=== PATIENT | female | born 1940 | race Caucasian/White ===

== ENCOUNTER 2019-12-15 06:17 | Observation (INO) ==
--- NOTE | 2019-11-28 10:01 | PAT Medication Instructions ---
Medication Instructions Date of Service November 28, 2019 Home Medications Medication Instructions Recorded oxycodone-acetaminophen [Percocet] 1 tab PO Q8H PRN #7 tab 03/27/19 carvedilol 25 mg tablet 25 mg PO BID #180 tab 08/10/19 solifenacin 10 mg tablet 10 mg PO QAM #90 tab 10/30/19 cholecalciferol (vitamin D3) 50 mcg (2,000 unit) capsule 2,000 units PO QPM coenzyme Q10 100 mg capsule 100 mg PO BID gabapentin 300 mg capsule 300 mg PO TID omeprazole 20 mg capsule,delayed release 40 mg PO QAM rosuvastatin 20 mg tablet 20 mg PO QAM venlafaxine 75 mg capsule,extended release 24 hr 75 mg PO QPM linagliptin 5 mg tablet 5 mg PO QAM docusate sodium [Stool Softener] 100 mg PO BID naproxen 500 mg PO BID oxycodone-acetaminophen [Percocet] 1 tab PO Q8H PRN carvedilol 25 mg tablet 25 mg PO BID solifenacin 10 mg tablet 10 mg PO QAM ASK your surgeon for instructions naproxen 500 mg PO BID STOP taking 2 weeks before surgery (or as soon as possible if surgery is within 2 weeks) coenzyme Q10 100 mg capsule 100 mg PO BID DO NOT take the morning of surgery linagliptin 5 mg tablet 5 mg PO QAM docusate sodium [Stool Softener] 100 mg PO BID solifenacin 10 mg tablet 10 mg PO QAM Take morning of surgery With a small sip of water, OTHERWISE NOTHING TO EAT OR DRINK AFTER MIDNIGHT: gabapentin 300 mg capsule 300 mg PO TID omeprazole 20 mg capsule,delayed release 40 mg PO QAM rosuvastatin 20 mg tablet 20 mg PO QAM oxycodone-acetaminophen [Percocet] 1 tab PO Q8H PRN (okay to take up to 4 hours prior to surgery if needed) carvedilol 25 mg tablet 25 mg PO BID Take evening before surgery cholecalciferol (vitamin D3) 50 mcg (2,000 unit) capsule 2,000 units PO QPM gabapentin 300 mg capsule 300 mg PO TID venlafaxine 75 mg capsule,extended release 24 hr 75 mg PO QPM docusate sodium [Stool Softener] 100 mg PO BID oxycodone-acetaminophen [Percocet] 1 tab PO Q8H PRN (if needed) carvedilol 25 mg tablet 25 mg PO BID Other Notes If you have any questions please call us at [phone] or [phone] or [phone] or [phone]
--- NOTE | 2019-11-30 11:07 | Anesthesiology Consultation ---
Date of Service November 30, 2019 Assessment & Plan (1) Encounter for pre-operative examination: - Check BSG AM DOS - Per assessment on 11/29: Travel screen negative. No known COVID-19 positive contacts or current COVID-19 related symptoms. Surgeon arranging preop COVID testing (being done at [facility]). Awaiting results. - Hx Anesthesia/surgery complication: "Heart failure" with 2011 bladder tacking (2011) at [facility]. Subsequent cystoscopy with bladder biopsy 03/27/19 under [place] (LMA#4 at [facility]) without issue. Chart Review Chart Review: Acceptable Risk for Surgery (pending surgeon-ordered cardiology clearance scheduled 12/07 ([facility] and Patient seen in Pre Admission Testing Teaching & Discussion Pre-Anesthesia Teaching/Discussion Notes: Instructed NPO after midnight before surgery,except medications with 15 cc of water. Medication instructions provided according to the PAT guidelines. History Surgery Operation Date: 12/15/19 07:45 Proposed Procedures p C6-C7 Anterior Cervical Discectomy and Fusion, Possible C5 Corpectomy, Spinal Cord Monitoring - Krishna Kaur DO Height/Weight Height: 5 ft 7.5 in Weight: 106.5 kg Allergies Allergy/AdvReac Type Severity Reaction Status Date / Time lisinopril Allergy Unknown Itchy Verified 11/30/19 11:10 Penicillins Allergy Unknown Arm Verified 11/30/19 11:10 swelling with injection escitalopram AdvReac Unknown Unknown Verified 11/24/19 11:50 milk AdvReac Unknown Diarrhea- Verified 11/30/19 11:10 lactose intolerance Sulfa (Sulfonamide AdvReac Unknown Hives Verified 11/24/19 11:50 Antibiotics) Medications Home Medications Medication Instructions Recorded Confirmed Last Taken cholecalciferol (vitamin D3) 50 2,000 units PO QPM cap 11/23/18 11/24/19 03/26/19 17:30 mcg (2,000 unit) capsule coenzyme Q10 100 mg capsule 100 mg PO BID cap 11/23/18 11/24/19 03/26/19 gabapentin 300 mg capsule 300 mg PO TID cap 11/23/18 11/24/19 03/26/19 21:00 omeprazole 20 mg capsule,delayed 40 mg PO QAM cap 11/23/18 11/24/19 03/27/19 03:30 release rosuvastatin 20 mg tablet 20 mg PO QAM #90 tab 11/23/18 11/24/19 03/26/19 09:00 venlafaxine 75 mg capsule,extended 75 mg PO QPM cap 11/23/18 11/24/19 03/26/19 21:00 release 24 hr linagliptin 5 mg tablet 5 mg PO QAM 01/30/19 11/24/19 03/26/19 21:00 docusate sodium [Stool Softener] 100 mg PO BID 03/14/19 11/24/19 03/26/19 21:00 naproxen 500 mg PO BID 03/14/19 11/24/19 03/26/19 17:30 oxycodone-acetaminophen [Percocet] 1 tab PO Q8H PRN #7 tab 03/27/19 11/24/19 Unknown carvedilol 25 mg tablet 25 mg PO BID #180 tab 08/10/19 11/24/19 Unknown solifenacin 10 mg tablet 10 mg PO QAM #90 tab 10/30/19 11/24/19 Unknown Past Medical History Medical History Cardiomyopathy non-ischemic cardiomyopathy with systolic CHF; follows with [facility] [place]ology (Dr. Baker) Depression Diabetes NIDDM Diaphragmatic hernia Esophageal reflux Fibromyalgia Hyperlipidemia Hypertension Migraine headache hx Obesity Osteoarthritis Exercise / Class Metabolic Activity III < 4 Walking/Shop/Light housework Past Family History Family History Brother Diabetes Heart disease Mother Diabetes Heart disease Father Heart disease Other No family history of adverse response to anesthesia Past Surgical History Surgical History H/O knee surgery History of back surgery History of bladder surgery "bladder tacked up (2011)" History of cardiac cath 2011- no stents History of colonoscopy History of cystoscopy TURBT History of esophagogastroduodenoscopy (EGD) Past Anesthesia History No Family Hx of Anesthesia Complications Hx anesthesia/surgery complication: "Heart failure" with 2011 bladder tacking (2011) at [facility]. Subsequent cystoscopy with bladder biopsy 03/27/19 under [place] (LMA#4 at [facility]) without issue. History of PONV No Hx of PONV and No Hx of Motion Sickness STOP BANG Total 5 Social History Smoking Status: Never smoker Do You Dip or Chew Tobacco: No Hx Alcohol Use: No Hx Substance Use: No substance use type: does not use Review of Systems Patient denies chest pain, shortness of breath, fever, chills, cough, wheezing, palpitations. Physical Exam Vital Signs VITALS BP 110/71 P 67 TEMP 98.1 SP02 96%RA RESP 16 PHYSICAL Full neck and c-spine range of motion. Full TMJ range of motion. TMD 3 finger breaths Mallampati Score 2 Dentition: missing molars, + crowns several all over Lungs: clear throughout to auscultation Cardiac: regular rate and rhythm, no murmurs noted Spine: normal Carotid arteries: negative bruit Extremities: +non-pitting LE edema Testing Laboratory Results 11/30/19 11:50 11/30/19 11:50 PT 11.0 Seconds (9.0-12.0) 11/30/19 11:50 INR 1.0 (0.9-1.1) 11/30/19 11:50 APTT 27.5 Seconds (21.0-31.0) 11/30/19 11:50 Hemoglobin A1c 6.2 % (4.5-5.6) H 11/30/19 11:50 Urine Color Yellow 11/30/19 Unknown Urine Appearance Clear (Clear) 11/30/19 Unknown Urine pH 5.0 (4.5-7.5) 11/30/19 Unknown Ur Specific [place] 1.032 (1.000-1.030) H 11/30/19 Unknown Urine Protein Negative (Negative) 11/30/19 Unknown Urine Glucose (UA) Negative (Negative) 11/30/19 Unknown Urine Ketones Negative (Negative) 11/30/19 Unknown Urine Nitrite Negative (Negative) 11/30/19 Unknown Ur Leukocyte Esterase Negative (Negative) 11/30/19 Unknown Blood Type A Negative 11/30/19 11:50 Antibody Screen NEGATIVE 11/30/19 11:50 Electrocardiogram Date: 03/07/19 Findings: + NSR @ (67) Normal sinus rhythm Minimal voltage criteria for LVH, may be normal variant ( Chencho product ) Nonspecific T wave abnormality Chest X-Ray Date: 03/07/19 FINDINGS: The bones soft tissues and hemidiaphragms are normal. The cardiomediastinal silhouette is normal. The lungs are clear. The pulmonary vasculature is normal. IMPRESSION: Negative chest. Echocardiogram Date: 06/05/16 Mildly dilated LV with mildly reduced systolic function. EF 45-50%. Mild global hypokinesis. Mild LVH. Type 1 DD. No valvular abnormalities. No change from prior study 08/07/2014.
[2019-11-30 13:19] LABS: Basophils # (auto) 0.01 K/uL (0-0.2); Basophils % (auto) 0.2 %; Eosinophils # (auto) 0.15 K/uL (0-0.5); Eosinophils % (auto) 2.9 %; Hematocrit (blood only) 35.8 % (37-47); Hemoglobin 11.8 g/dL (12.0-16.0); Immature Granulocytes # (auto) 0.02 K/uL (0.00-0.02); Immature Granulocytes % (auto) 0.4 %; Lymphocytes # (auto) 1.26 K/uL (1.2-3.4); Mean Corpuscular Hemoglobin 30.9 pg (25-34); Mean Corpuscular Volume 93.7 fL (80-100); Monocytes # (auto) 0.53 K/uL (0.11-0.59); Monocytes % (auto) 10.1 %; Neutrophils # (auto) 3.27 K/uL (1.4-6.5); Neutrophils % (auto) 62.4 %; Platelet Count 168 K/uL (130-400); RDW Coefficient of Variation 13.5 % (11.5-14.5); RDW Standard Deviation 46.1 fL (36.4-46.3); Red Blood Count 3.82 M/uL (4.2-5.4); White Blood Count 5.24 K/uL (4.8-10.8)
[2019-11-30 13:20] LABS: Appearance Urine Clear (Clear); Bilirubin Urine Negative (Negative); Blood Urine Negative (Negative); Color Urine Yellow; Glucose Urine UA Negative (Negative); Ketones Urine Negative (Negative); Leukocyte Esterase Urine Negative (Negative); Nitrite Urine Negative (Negative); Protein Urine Negative (Negative); Specific Gravity Urine 1.032 (1.000-1.030); Urobilinogen Urine Negative (Negative)
[2019-11-30 13:34] LABS: Partial Thromboplastin Time 27.5 Seconds (21.0-31.0)
[2019-11-30 14:02] LABS: Estimated Average Glucose 131 mg/dl; Hemoglobin A1C 6.2 % (4.5-5.6)
[2019-11-30 14:08] LABS: BUN Creatinine Ratio 25.4 (10-20); Calcium 8.9 mg/dl (8.5-10.1); Creatinine Clr Calc Pharmacy 65.7 ml/min; Est GFR (African American) 72.4; Est GFR (Non-African American) 62.5; Potassium 4.3 mmol/L (3.5-5.1)
[~2019-12-15 06:17] MED LIST: CLINDAMYCIN 600 MG/54 ML BAG IV SCH; GABAPENTIN 300 MG CAP PO SCH; LR 15ML/HR IV SCH
[2019-12-15] MEDS ORDERED: GLYCOPYRROLATE 0.2 MG/ML VIAL ONE (06:27)
[2019-12-15] MEDS ORDERED: LIDOCAINE HCL 2% 2 ML VIAL/AMP(20MG/ML) INFIL ONE (06:27)
[2019-12-15] MEDS ORDERED: DEXAMETHASONE SOD INJ 4 MG/ML VIAL ONE ×3 (06:27→06:30)
[2019-12-15] MEDS ORDERED: fentaNYL citrate 100 MCG/2 ML VIAL ONE (06:27)
[2019-12-15] MEDS ORDERED: PROPOFOL IV EMULSION 10 MG/ML 20 ML VIAL IV ONE (06:27)
[2019-12-15] MEDS ORDERED: ROCURONIUM BROMIDE 10 MG/ML 5 ML VIAL IV ONE (06:27)
[2019-12-15] MEDS ORDERED: NEOSTIGMINE METHYLSULFATE 1 MG/ML 10ML VIAL ONE (06:27)
[2019-12-15] MEDS ORDERED: ONDANSETRON INJ 2 MG/ML 2 ML VIAL ONE (06:27)
[2019-12-15] MEDS ORDERED: BACITRACIN INJ 50,000 UNIT VIAL ONE (07:04)
[2019-12-15] MEDS ORDERED: BUPIVACAINE/EPINEPHRINE 0.25% 1:200,000 30 ML VIAL ONE (07:04)
[2019-12-15] MEDS ORDERED: ONDANSETRON INJ 2 MG/ML 2 ML VIAL IV PRN ×2 (07:10→11:46)
[2019-12-15] MEDS ORDERED: ATROPINE SULFATE 0.1 MG/ML 10ML SYR IV PRN (07:10)
[2019-12-15] MEDS ORDERED: PROMETHAZINE HCL 12.5 MG in SODIUM CHLORIDE 0.9% 50 ML IV PRN ×2 (07:10→11:46)
[2019-12-15] MEDS ORDERED: fentaNYL citrate 100 MCG/2 ML VIAL IV PRN (07:10)
[2019-12-15] MEDS ORDERED: HYDROmorphone INJ 2 MG/ML SYR/VIAL IV PRN (07:10)
[2019-12-15] MEDS ORDERED: ePHEDrine sulfate 50 MG/ML AMP IV PRN (07:10)
--- NOTE | 2019-12-15 07:26 | History & Physical Bridge Note ---
Date of Service December 15, 2019 History & Physical Bridge Note I have examined the patient, reviewed the History & Physical and in the interval since the performance of the History & Physical I have noted the following changes of clinical significance: no changes noted
--- NOTE | 2019-12-15 07:27 | History & Physical Report ---
Date of Service December 15, 2019 Assessment & Plan (1) Cervical stenosis of spinal canal: Admission and Anticipated Discharge Date Admission Date: See 6 C7 anterior cervical discectomy and fusion, possible C5 corpectomy History of Present Illness Chief Complaint: Neck and arm pain Primary Care Provider: Gualberto Perez MD This is a 79-year-old female who presents with chronic persistent neck and arm symptoms after failing course of nonoperative care is here for surgical intervention. Allergies Allergy/AdvReac Type Severity Reaction Status Date / Time lisinopril Allergy Mild Itchy Verified 12/15/19 06:36 Sulfa (Sulfonamide AdvReac Severe Hives Verified 12/15/19 06:36 Antibiotics) milk AdvReac Intermediate Diarrhea- Verified 12/15/19 06:36 lactose intolerance Penicillins AdvReac Intermediate Arm Verified 12/15/19 06:36 swelling with injection Home Medications Home Medications Medication Instructions Recorded Confirmed Type cholecalciferol (vitamin D3) 50 2,000 units PO QPM cap 11/23/18 12/15/19 History mcg (2,000 unit) capsule coenzyme Q10 100 mg capsule 100 mg PO BID cap 11/23/18 12/15/19 History gabapentin 300 mg capsule 300 mg PO TID cap 11/23/18 12/15/19 History omeprazole 20 mg capsule,delayed 40 mg PO QAM cap 11/23/18 12/15/19 History release rosuvastatin 20 mg tablet 20 mg PO QAM #90 tab 11/23/18 12/15/19 History venlafaxine 75 mg capsule,extended 75 mg PO QPM cap 11/23/18 12/15/19 History release 24 hr linagliptin 5 mg tablet 5 mg PO QAM 01/30/19 12/15/19 History docusate sodium [Stool Softener] 100 mg PO BID 03/14/19 12/15/19 History naproxen 500 mg PO BID 03/14/19 12/15/19 History solifenacin 10 mg tablet 10 mg PO QAM #90 tab 10/30/19 12/15/19 Rx carvedilol [Coreg] 25 mg PO BID 12/15/19 12/15/19 History Past Med/Surg History Medical History Cardiomyopathy non-ischemic cardiomyopathy with systolic CHF; follows with [facility] cardiology (Dr. Baker) Depression Diabetes NIDDM Diaphragmatic hernia Esophageal reflux Fibromyalgia Hyperlipidemia Hypertension Migraine headache hx Obesity Osteoarthritis Surgical History H/O knee surgery History of back surgery History of bladder surgery "bladder tacked up (2011)" History of cardiac cath 2011- no stents History of colonoscopy History of cystoscopy TURBT History of esophagogastroduodenoscopy (EGD) Family History Brother Diabetes Heart disease Mother Diabetes Heart disease Father Heart disease Other No family history of adverse response to anesthesia Social History Smoking Status: Never smoker Second Hand Exposure: No; Do You Dip or Chew Tobacco: No; Hx Alcohol Use: No Hx Substance Use: No Preferred Language: Cymro Communication Ability: Effective Numerical Control Nesting 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 Heart regular rate and rhythm. Lungs clear to auscultation. Results & Data ([facility]) Vital Signs (Past 12 Hours) Vital Signs Temp Pulse Resp BP Pulse Ox 12/15/19 06:45 36.6 C 76 20 140/79 96
[2019-12-15] MEDS ORDERED: ePHEDrine sulfate 50 MG/ML SYR ONE (08:30)
[2019-12-15] MEDS ORDERED: PHENYLEPHRINE 100MCG/ML 5ML SYR ONE (08:30)
[2019-12-15] MEDS ORDERED: FLOSEAL HEMOSTATIC MATRIX 10ML TOP ONE (08:49)
--- NOTE | 2019-12-15 09:48 | Operative Report ---
Post Operative Report Pre & Post Diagnosis Operation Date: 12/15/19 07:45 Pre-Op Diagnosis: Cervical spinal stenosis with myelopathy Post-Op Diagnosis: Same I identified the patient and participated in the time-out.: Yes Procedure Operation Date: 12/15/19 07:45 Actual Procedures #1 anterior cervical corpectomy with bilateral foraminotomies C5. #2 anterior cervical arthrodesis C4-C6. #3 placement of peek cage 25 mm in height C4-C6. #4 application of [place] plate and screws from C4-C6. #5 placement locally harvested morselized autograft combined with DBM and the interbody cage. Surgeon Krishna Kaur, Or Scrub Tech Alvaro Barba Estimated Blood Loss 50 Findings Consistent with Post-Op Diagnosis Specimens None Indications This is a 79-year-old female who presents with above-mentioned diagnosis after failing course of nonoperative care is here for the above-mentioned procedure. Description of Procedure Patient was met with identified informed consent obtained. 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 All bony prominences well-padded eyes inspected to ensure no external pressure placed upon the. This point the anterior cervical spine was prepped and draped in normal sterile fashion. With assistance of fluoroscopy identified the C5 vertebral body and a transverse incision was placed on the right anterior aspect of the cervical spinal lines region. Sharp dissection with assistance of bipolar electrocautery performed down to and exposing the anterior cervical spine from C4-C6. Self-retaining retractors placed. Then performed a complete discectomy of C5-6 out to the uncovertebral's bilaterally followed by C4-5. [place] distracting pins were then placed in C4 and C6 to distract across the C5 vertebral body. I removed the entire vertebral body including all posterior annular fibers and longitudinal ligament and perform bilateral foraminotomies. Endplates were then burred to subcortical bleeding bone and a 25 mm peek cage filled with local autograft and DBM tapped in position. Distracting apparatus was removed and a 5 complete and screws applied with the assistance of fluoroscopy. The incision was then copiously irrigated explored to ensure no damage to surrounding structures remaining bleeding. 10 round HANNAH drain inserted. Incision was then closed with 2 Vicryl in a fashion of 4 Monocryl for fascial closure. Steri-Strip sterile dressings placed. Patient will continue PACU stable addition. Please note Alvaro Barba was present at the entire procedure involved the patient positioning complex portions of the surgery and final skin closure. Lastly spinal cord monitoring was utilized that the procedure no changes noted. I attest to the content of the Intraoperative Record and any orders documented therein. Any exceptions are noted below.
--- NOTE | 2019-12-15 10:07 | Fluoroscopy Report ---
FL cervical 2-3V CLINICAL HISTORY: ACDF C6-7 CORPECTOMY C5 COMPARISON STUDY: None FLUOROSCOPY TIME: 8 seconds. FLUOROSCOPIC IMAGES: 2 FINDINGS: Fluoroscopy was provided for a C5 corpectomy. Anterior discectomy and fusion from C4 throug h C6 is noted with anterior plate and screws. Endotracheal tube is partially imaged. IMPRESSION: Fluoroscopy provided during C5 corpectomy and C4-C6 anterior discectomy and fusion. ACT 112: Negative or not required by law. Electronically signed by: Vin Rhodes M.D. 12/15/2019 10:05 AM
--- NOTE | 2019-12-15 11:36 | Anesthesiology Progress Note ---
Date of Service December 15, 2019 Anesthesia Post Procedure Vital Signs Vital Signs: Temp Pulse Pulse Resp BP Pulse Ox 12/15/19 11:15 36.2 C L 59 L 12 146/74 H 97 12/15/19 11:05 60 12 154/73 H 97 12/15/19 10:55 59 L 12 151/78 H 97 12/15/19 10:45 36.3 C L 60 14 136/66 99 12/15/19 10:35 61 14 152/60 H 99 12/15/19 10:25 63 13 161/67 H 100 12/15/19 10:15 65 18 142/80 H 98 12/15/19 10:06 35.8 C L 70 18 160/93 H 98 12/15/19 06:45 36.6 C 76 20 140/79 96 Pain Intensity Lower Back: Pain Intensity: 5 Bilateral Hand: Pain Intensity: 6 Right Anterior Neck: Pain Intensity: 0 Transfer of Care Handoff Completed per policy Notes Mental Status: alert / awake / arousable and participated in evaluation Patient Amnestic to Procedure: Yes Nausea / Vomiting: adequately controlled Pain: adequately controlled Airway Patency, RR, SpO2: stable & adequate BP & HR: stable & adequate Hydration State: stable & adequate Anesthetic Complications: no major complications apparent and Pt Satisfied with anesthetic care
[2019-12-15] MEDS ORDERED: DO NOT ADMINISTER PNEUMOCOCCAL VACCINE PRN (11:46)
[2019-12-15] MEDS ORDERED: FAMOTIDINE 20 MG TAB PO PRN (11:46)
[2019-12-15] MEDS ORDERED: NALOXONE HCL 0.4 MG/1 ML VIAL/CARP IV PRN (11:46)
[2019-12-15] MEDS ORDERED: LORazepam 0.5 MG TAB PO PRN (11:46)
[2019-12-15] MEDS ORDERED: METOCLOPRAMIDE HCL INJ 5 MG/ML 2 ML VIAL IV PRN (11:46)
[2019-12-15] MEDS ORDERED: DEXAMETHASONE SOD PHOSPHATE 8 MG in SYRINGE 0 ML IV PRN (11:46)
[2019-12-15] MEDS ORDERED: ALUMINUM/MAGNESIUM SUSP 30 ML UDC PO PRN (11:46)
[2019-12-15] MEDS ORDERED: DO NOT ADMINISTER FLU VACCINE PRN (11:46)
[2019-12-15] MEDS ORDERED: RACEPINEPHRINE 2.25% NEBU SOLN 0.5 ML VIAL INH PRN (11:46)
[2019-12-15] MEDS ORDERED: HYDROmorphone INJ 0.5 MG/0.5 ML SYR IV PRN (11:46)
[2019-12-15] MEDS ORDERED: ACETAMINOPHEN 1,000 MG/100 ML VIAL IV PRN (11:46)
[2019-12-15] MEDS ORDERED: ONDANSETRON 4 MG OD TAB PO PRN (11:46)
[2019-12-15] MEDS ORDERED: MAGNESIUM HYDROXIDE SUSP 30 ML UDC PO PRN (11:46)
[2019-12-15] MEDS ORDERED: SOD PHOSPHATE/SOD BIPHOSPHATE ENEMA 132 ML BTL PR PRN (11:46)
[2019-12-15] MEDS ORDERED: LORazepam 0.5 MG/1 ML VIAL IV PRN (11:46)
[2019-12-15] MEDS ORDERED: HYDROmorphone INJ 1 MG/ML SYRINGE IV PRN (11:46)
[2019-12-15] MEDS ORDERED: TRAMADOL HCL 50 MG TABLET PO PRN (11:46)
--- NOTE | 2019-12-15 12:11 | Consultation ---
Date of Consultation December 15, 2019 Assessment & Plan (1) S/P spinal surgery: Post op day# 0 S/P ACDF C4-C6 by Dr Natasha COOK#50 Post op doing well -pain management per ortho -wound management per ortho -PT/OT as appropriate -DVT prophylaxis per ortho -monitor H&H for acute blood loss anemia; Pre-op Hgb: 11.8 (2) Cardiomyopathy: EF 45-50% on recent echo No signs of fluid overload -Continue carvedilol (3) Diabetes: DM II A1c: 6.2 on 11/30/2019 -Hold Tradjenta -Novolog sliding scale per protocol (4) Hypertension: Stable -Continue carvedilol (5) Hyperlipidemia: -Continue rosuvastatin (6) Depression: -Continue venlafaxine DVT Prophylaxis -SCDs per ortho Disposition per primary service Follows with Dr Gualberto Perez in [place] for routine care Pt was seen and care coordinated with Dr Beard. See addendum Thank you for this consultation. We will follow the patient with you during their hospital stay. You can reach a member of the [facility] Hospitalist Team 19/10 via pager @ [phone]. Supervising Physician Co-Signing Physician Notes I saw this patient with the physician marketing assistant, I participated in the history, physical, review of systems, and physical exam. I reviewed the medications with the patient and the physician marketing assistant and helped reconcile the medications. I helped take a detailed family and social history as well. I formulated the assessment and plan personally with the physician marketing assistant and went over it with the patient. Physical Exam Gen-AAO x 3, NAD, Afebrile Head-NCAT, EOMI, PERRLA, Anicteric Sclera, No Posterior Pharyngeal Erythema, Blood soaked Gauze at ACDF site Neck-Supple, No JVD, No Thyromegaly, No Masses, No LAD, No Bruits Lungs-Clear to Auscultation Bilaterally, No Rales, No Rhonchi, No Wheezing, No Crepitus Chest-No S4, +S1, +S2, No S3, No Murmurs, No Rubs, No Gallops, No Ectopy Abdomen-Soft, Bowel Sounds Present, Non Tender, Non Distended, No Hepatomegaly, No Splenomegaly, No Palpable Masses, No Rebound, No Rigidity, No Guarding Musculoskeletal-Full Range of Motion Bilaterally, No CVAT Extremities-No Cyanosis, No Clubbing, No Edema Nuero-Cranial Nerves II-XII grossly intact, Motor WNL, DTRs WNL, Strength WNL, Non Focal Psych-Normal Mood History of Present Illness Requesting Physician: Dr Kaur Reason for Consultation: Post op medical management Attending Physician: Krishna Kaur, DO History of Present Illness Pt is 79 y/o F with PMH cardiomyopathy, HTN, HLD, DM II, depression, obesity seen in medical consultation s/p ACDF C4-C6 today by Dr Kaur. Postop patient reports doing well. Reports some stiffness/aching of bilateral hands which was present prior to operation. Denies any extremity weakness or loss of range of motion. Denies nausea, vomiting, chest pain, shortness of breath, headache. Denies fever/chills, dizziness, vision changes, cough, choking, abdominal pain, paresthesias, extremity edema, rashes, urinary symptoms. Allergies Allergy/AdvReac Type Severity Reaction Status Date / Time lisinopril Allergy Mild Itchy Verified 12/15/19 06:36 tramadol Allergy Hives Verified 12/15/19 16:02 Sulfa (Sulfonamide AdvReac Severe Hives Verified 12/15/19 06:36 Antibiotics) milk AdvReac Intermediate Diarrhea- Verified 12/15/19 06:36 lactose intolerance Penicillins AdvReac Intermediate Arm Verified 12/15/19 06:36 swelling with injection Home Medications Home Medications Medication Instructions Recorded Confirmed Type cholecalciferol (vitamin D3) 50 2,000 units PO QPM cap 11/23/18 12/15/19 History mcg (2,000 unit) capsule coenzyme Q10 100 mg capsule 100 mg PO BID cap 11/23/18 12/15/19 History gabapentin 300 mg capsule 300 mg PO TID cap 11/23/18 12/15/19 History omeprazole 20 mg capsule,delayed 40 mg PO QAM cap 11/23/18 12/15/19 History release rosuvastatin 20 mg tablet 20 mg PO QAM #90 tab 11/23/18 12/15/19 History venlafaxine 75 mg capsule,extended 75 mg PO QPM cap 11/23/18 12/15/19 History release 24 hr linagliptin 5 mg tablet 5 mg PO QAM 01/30/19 12/15/19 History docusate sodium [Stool Softener] 100 mg PO BID 03/14/19 12/15/19 History naproxen 500 mg PO BID 03/14/19 12/15/19 History solifenacin 10 mg tablet 10 mg PO QAM #90 tab 10/30/19 12/15/19 Rx carvedilol [Coreg] 25 mg PO BID 12/15/19 12/15/19 History Patient History Medical History Cardiomyopathy non-ischemic cardiomyopathy with systolic CHF; follows with [facility] cardiology (Dr. Baker) Depression Diabetes NIDDM Diaphragmatic hernia Esophageal reflux Fibromyalgia Hyperlipidemia Hypertension Migraine headache hx Obesity Osteoarthritis Surgical History H/O knee surgery History of back surgery History of bladder surgery "bladder tacked up (2011)" History of cardiac cath 2011- no stents History of colonoscopy History of cystoscopy TURBT History of esophagogastroduodenoscopy (EGD) Family History Brother Diabetes Heart disease Mother Diabetes Heart disease Father Heart disease Other No family history of adverse response to anesthesia Social History Smoking Status: Never smoker Second Hand Exposure: No; Do You Dip or Chew Tobacco: No; Hx Alcohol Use: No Hx Substance Use: No Preferred Language: Algerian Communication Ability: Effective Pulp House Supervisor Required: No Beliefs That Will Affect Care: None marital status: Current Living Situation: Spouse Feels Safe at Home: Yes Safety Concerns: Feels Safe At This Time Review of Systems Review of Systems: All systems reviewed & are unremarkable except as noted in HPI & below Physical Exam Physical Exam: General: no distress, obese Head: normocephalic, atraumatic Eyes: conjunctiva non-injected, anicteric ENT: normal inspection external ears, nose, mucous membranes moist Neck: supple, anterior neck with surgical dressing in place, HANNAH drain in place Lungs: clear, no respiratory distress, no wheezing/rhonchi/rales CV: RRR, no murmur, no pretibial edema Abd: normal BS, soft, non-tender Ext: no calf tenderness, pedal pushes and pulls intact bilaterally, strong bead trimmer strength bilaterally, distal pulses intact, sensation to light touch intact Neuro: A&O x 3, no focal deficits noted, normal affect Skin: warm, dry Results & Data ([facility]) Vital Signs (Past 12 Hours) Vital Signs Temp Pulse Pulse Resp BP Pulse Ox 12/15/19 12:04 36.3 C L 61 16 155/80 H 95 12/15/19 11:30 36.4 C L 58 L 14 139/74 94 12/15/19 11:15 36.2 C L 59 L 12 146/74 H 97 12/15/19 11:05 60 12 154/73 H 97 12/15/19 10:55 59 L 12 151/78 H 97 12/15/19 10:45 36.3 C L 60 14 136/66 99 12/15/19 10:35 61 14 152/60 H 99 12/15/19 10:25 63 13 161/67 H 100 12/15/19 10:15 65 18 142/80 H 98 12/15/19 10:06 35.8 C L 70 18 160/93 H 98 12/15/19 06:45 36.6 C 76 20 140/79 96
[2019-12-15] MEDS ORDERED: CARBOHYDRATES FOR HYPOGLYCEMIA PO PRN (12:24)
[2019-12-15] MEDS ORDERED: DEXTROSE 50% 50 ML SYRINGE IV PRN (12:24)
[2019-12-15] MEDS ORDERED: GLUCOSE 40% GEL 15 GM TUBE PO PRN (12:24)
[2019-12-15] MEDS ORDERED: GLUCAGON FOR INJ 1 MG VIAL SQ PRN (12:24)
[2019-12-15] MEDS ORDERED: GLUCOSE 10 TABS/TUBE PO PRN (12:24)
[2019-12-15] MEDS: INSULIN ASPART 100 UNITS/ML 3 ML PEN SC SCH ×3 (13:51→22:20)
[2019-12-15] MEDS: ACETAMINOPHEN 500 MG TAB PO PRN (13:52)
[2019-12-15] MEDS: GABAPENTIN 300 MG CAP PO SCH ×2 (13:54→22:01)
[2019-12-15] MEDS: SODIUM CHLORIDE 0.9% 1000ML 1,000 ML IV SCH (13:55)
[2019-12-15] MEDS: OXYCODONE HCL IR 5 MG TAB (IMMEDIATE RELEASE) PO PRN ×3 (14:46→19:59)
[2019-12-15] MEDS: CLINDAMYCIN 600 MG in DEXTROSE 5% 50 ML IV SCH ×2 (15:33→22:05)
[2019-12-15] MEDS ORDERED: CHOLECALCIFEROL 1,000 UNITS 25 MCG TAB PO SCH (21:00)
[2019-12-15] MEDS ORDERED: DOCUSATE SODIUM/SENNA 50/8.6MG TAB PO SCH (21:00)
[2019-12-15] MEDS ORDERED: VENLAFAXINE HCL XR 75 MG CAPXR PO SCH (21:00)
[2019-12-15] MEDS ORDERED: NON-FORMULARY MEDICATION (Coenzyme Q10 100 MG) PO SCH (21:00)
[2019-12-15] MEDS: carvediloL 25 MG TAB PO SCH (22:01)
[2019-12-15] MEDS: DOCUSATE SODIUM 100 MG CAP PO SCH (22:02)
[2019-12-16] MEDS: SODIUM CHLORIDE 0.9% 1000ML 1,000 ML IV SCH (00:09)
[2019-12-16] MEDS: OXYCODONE HCL IR 5 MG TAB (IMMEDIATE RELEASE) PO PRN ×2 (00:09→10:51)
[2019-12-16 07:36] LABS: Hematocrit (blood only) 33.3 % (37-47); Hemoglobin 10.8 g/dL (12.0-16.0); Immature Granulocytes # (auto) 0.03 K/uL (0.00-0.02); Immature Granulocytes % (auto) 0.3 %; Lymphocytes # (auto) 1.13 K/uL (1.2-3.4); Lymphocytes % (auto) 12.7 %; Mean Corpuscular Hemoglobin 30.4 pg (25-34); Mean Corpuscular Hgb Conc 32.4 g/dL (32-36); Mean Corpuscular Volume 93.8 fL (80-100); Mean Platelet Volume 11.2 fL (7.4-10.4); Monocytes # (auto) 0.61 K/uL (0.11-0.59); Monocytes % (auto) 6.8 %; Neutrophils # (auto) 7.16 K/uL (1.4-6.5); Neutrophils % (auto) 80.2 %; Platelet Count 160 K/uL (130-400); RDW Coefficient of Variation 13.3 % (11.5-14.5); Red Blood Count 3.55 M/uL (4.2-5.4); White Blood Count 8.93 K/uL (4.8-10.8)
[2019-12-16 08:03] LABS: BUN Creatinine Ratio 19.3 (10-20); Calcium 8.5 mg/dl (8.5-10.1); Creatinine Clr Calc Pharmacy 65.6 ml/min; Est GFR (African American) 73.4; Est GFR (Non-African American) 63.4; Potassium 4.2 mmol/L (3.5-5.1)
[2019-12-16] MEDS ORDERED: ROSUVASTATIN CALCIUM 20 MG TAB PO SCH (09:00)
[2019-12-16] MEDS ORDERED: PANTOprazole 40 MG TAB PO SCH (09:00)
[2019-12-16] MEDS ORDERED: NON-FORMULARY MEDICATION (Linagliptin [Tradjenta] 5 MG) PO SCH (09:00)
[2019-12-16] MEDS: INSULIN ASPART 100 UNITS/ML 3 ML PEN SC SCH (09:03)
[2019-12-16] MEDS: carvediloL 25 MG TAB PO SCH (09:04)
[2019-12-16] MEDS: DOCUSATE SODIUM 100 MG CAP PO SCH (09:04)
[2019-12-16] MEDS: GABAPENTIN 300 MG CAP PO SCH (09:05)
[2019-12-16] MEDS ORDERED: POLYETHYLENE (MIRALAX) 17 GM PACK PO SCH (09:50)
--- NOTE | 2019-12-16 09:54 | Discharge Summary ---
Date of Service December 16, 2019 Admission HPI Per Admitting Provider This is a 79-year-old female who presents with chronic persistent neck and arm symptoms after failing course of nonoperative care is here for surgical intervention. Principal Diagnosis Cervical spinal stenosis with myelopathy Discharge Data Allergies Allergy/AdvReac Type Severity Reaction Status Date / Time lisinopril Allergy Mild Itchy Verified 12/15/19 06:36 tramadol Allergy Hives Verified 12/15/19 16:02 Sulfa (Sulfonamide AdvReac Severe Hives Verified 12/15/19 06:36 Antibiotics) milk AdvReac Intermediate Diarrhea- Verified 12/15/19 06:36 lactose intolerance Penicillins AdvReac Intermediate Arm Verified 12/15/19 06:36 swelling with injection Consultations 12/15/19 11:46 Consult Hospitalist Routine Procedures Performed Operation Date: 12/15/19 07:45 Actual Procedures p C6-C7 Anterior Cervical Discectomy and Fusion, C5 Corpectomy, Spinal Cord Monitoring(Not Applicable) - Krishna Kaur DO Ordered Studies 12/15/19 07:45 FL cervical 2-3V Routine FL fluoroscopy <1hr Routine Hospital Course (1) Cervical stenosis of spinal canal: Patient went anterior cervical decompression and fusion tolerated this well was taken to orthopedic for postoperative. Postop day 1 she was swallowing well no hoarseness arm symptoms improved. Strength intact. Subsequently discharged home. Discharge orders instructions from the chart for further review. Total Time Total Time Spent Total Time Spent (In Minutes): 20 minutes Discharge Plan Discharge Items Patient Disposition: Home - Self-Care Reason For Visit: Spinal Stenosis, Cervical Region Discharge Diagnosis: Cervical spinal stenosis with myelopathy Activity: As commented below Non-emergency contact: Primary Care Provider Call non-emergency contact if: you have any medication questions Follow-up/Referrals: Gualberto Perez MD [Primary Care Provider] - Diet: Regular Addtl Attending Provider Instructions: ACTIVITY RECOMMENDATIONS: SELF CARE INSTRUCTIONS AFTER CERVICAL FUSIONS 1. No smoking. Smoking drastically decreases the chance of a solid fusion. 2. No bending, lifting more than 5 pounds, or twisting (roll like a log when turning in bed). 3. You may shower 3 days after surgery. Thoroughly dry wound. Do not soak in the tub. 4. Cervical collar: Must be worn at all times including sleeping. You may remove the brace only to bath, eat and if you are sitting in a recliner. 5. Please walk as much as you can for exercise. Gradually increase the distance that you walk as your endurance increases. SPECIAL CARE INSTRUCTIONS: VERY IMPORTANT TO READ AND REVIEW A. Do not take any anti-inflammatory medications (i.e. Indocin, Advil, Aspirin, Naprosyn, Aleve, Motrin, etc.) as these may inhibit the chance of a solid fusion. Tylenol is okay to take. B. Your surgical incision has been closed with a cosmetic suture under the skin that will dissolve in about 6 weeks. In 14 days, you can use a pair of clean scissors and cut the suture that is left outside of the skin at the ends of your incision. C. Complications are uncommon, but please contact us if you have any signs or symptoms of: 1. wound infection (fever higher than 102.5 degrees F, redness, separation of wound, drainage, or increasing pain from the incision) 2. blood clots in legs (pain, swelling, redness and warmth in legs) 3. urinary tract infection (fever higher than 102.5 degrees, burning upon urination or increased frequency of urination) 4. nerve problems (inability to walk on your toes or heels, numbness, loss of bowel or bladder control) 5. any other symptoms that concern you. D. Please call the office at if you have any concerns or questions about your operation or recovery. MANAGING PAIN AFTER SPINAL SURGERY 1. Narcotic medication is intended for short-term use and will be provided for surgical pain. Surgical pain usually lasts for a period of 4-6 weeks. Narcotic medication includes Percocet, Vicodin, Darvocet, Tylenol #3 or Lortab. 2. Longer-term pain is more appropriately treated with non-narcotic medication such as Tylenol ES. 3. Muscle spasm is not appropriately treated with narcotics. Muscle relaxers such as Soma, Flexeril or Skelaxin can be used along with Tylenol ES. 4. Remember that we all live with some "aches and pains". This is not unusual or uncommon after an injury or as we get older. 5. We will provide appropriate medication within the normal guidelines of their prescribed use. We will also be very cautious and aware of potential abuse and extended duration of patients' medication needs. 6. Please allow 2-3 days to process refills. Prescriptions will not be mailed but must be picked up at the office. FOLLOW UP VISIT: Keep your scheduled follow-up appointment. Any questions, please call the office at . Pending Studies at Discharge: No Stand-Alone Forms: My [facility], Smoking Cessation Medications and DC Order Prescriptions: New oxycodone 5 mg tablet 5 mg PO Q6H PRN (Reason: pain, severe) Qty: 20 RF: 0 Continued solifenacin [Vesicare] 10 mg tablet 10 mg PO QAM Qty: 90 RF: 1 coenzyme Q10 100 mg capsule 100 mg PO BID RF: 0 rosuvastatin 20 mg tablet 20 mg PO QAM Qty: 90 RF: 0 gabapentin 300 mg capsule 300 mg PO TID RF: 0 omeprazole 20 mg capsule,delayed release(DR/EC) 40 mg PO QAM RF: 0 venlafaxine [Effexor XR] 75 mg capsule,extended release 24hr 75 mg PO QPM RF: 0 cholecalciferol (vitamin D3) 2,000 unit capsule 2,000 units PO QPM RF: 0 Tradjenta 5 mg tablet 5 mg PO QAM RF: 0 naproxen 500 mg Tablet 500 mg PO BID RF: 0 docusate sodium [Stool Softener] 100 mg Capsule 100 mg PO BID RF: 0 carvedilol [Coreg] 25 mg tablet 25 mg PO BID RF: 0 Discharge Orders: Discharge Order (Routine); Ordered 12/16/19 Ordered By: Krishna Kaur Admission Data Admit Date/Time: 12/15/19 10:39 Attending Provider: Krishna Kaur Admit Provider: Krishna Kaur Primary Care Provider: Gualberto Perez Other Providers: Blayne Medrano ; Janina Bergman
[2019-12-16] MEDS ORDERED: DEXAMETHASONE SOD PHOSPHATE 8 MG in SYRINGE 0 ML IV STA (09:57)
[2019-12-16] MEDS: ACETAMINOPHEN 500 MG TAB PO PRN (10:51)
--- NOTE | 2019-12-16 11:13 | Hospitalist Progress Note ---
Date of Service December 16, 2019 Assessment & Plan (1) S/P spinal surgery: Post op day# 1 S/P ACDF C4-C6 by Dr Kaur Management as per Ortho Has been doing much better this morning Joe medically stable -PT/OT as appropriate -DVT prophylaxis per ortho -Hemoglobin stable at 10.8 as of 12/16/2019 (2) Cardiomyopathy: EF 45-50% on recent echo No signs of fluid overload -Continue carvedilol -Issue (3) Diabetes: DM II A1c: 6.2 on 11/30/2019 -Hold Tradjenta -Novolog sliding scale per protocol (4) Hypertension: Stable -Continue carvedilol (5) Hyperlipidemia: -Continue rosuvastatin (6) Depression: -Continue venlafaxine DVT Prophylaxis -SCDs per ortho Disposition per primary service Follows with Dr Gualberto Perez in [place] for routine care Medically stable to be discharged Admission and Anticipated Discharge Date Admission Date: December 15, 2019 Subjective 12/16/2019 The patient was seen and examined in medical floor She is status post C6-C7 ACDF on 12/15/2019 Has been feeling a lot better today and she will be discharged this afternoon Review of Systems Review of Systems: All systems reviewed and are unremarkable except as noted below Musculoskeletal: Minimal neck pain and has a cervical collar Physical Exam Physical Exam: Sitting on a chair without any acute distress Constitutional: well developed, well nourished and + obese; no acute distress and not ill appearing Eyes: PERRL, conjunctivae normal, anicteric sclerae ENMT: external ear and nose normal, oropharynx normal Neck: trachea midline, no thyromegaly Respiratory: normal respiratory effort; no respiratory distress Cardiovascular: Rate/Rhythm: regular rate and regular rhythm Heart Sounds: no murmur Gastrointestinal (Abdomen): Inspection/Auscultation: abdomen normal to inspection and normal bowel sounds; abdomen not distended Percussion/Palpation: abdomen soft; abdomen nontender Musculoskeletal: Has a cervical collar status post C6-C7 ACDF Neurologic: moves all extremities; no focal motor deficits Psychiatric: A+Ox3, euthymic affect Lymphatic: no cervical or axillary lymphadenopathy Results & Data Results & Data ([facility]) Vital Signs (Past 12 Hours) Vital Signs Temp Pulse Resp BP Pulse Ox 12/16/19 10:39 36.6 C 69 16 121/70 94 12/16/19 08:12 36.5 C 66 16 145/74 H 93 12/16/19 07:38 36.4 C L 68 16 132/69 95 12/16/19 07:10 68 16 96 12/16/19 06:13 36.6 C 66 16 133/74 95 12/16/19 04:00 36.6 C 18 146/79 H 96 12/16/19 03:24 64 18 95 12/16/19 01:55 36.3 C L 70 18 138/71 95 12/16/19 00:00 36.5 C 75 16 121/69 97 12/15/19 23:27 77 18 97 Laboratory Results Short CBC 12/16/19 Range/Units 07:12 WBC 8.93 (4.8-10.8) K/uL Hgb 10.8 L (12.0-16.0) g/dL Hct 33.3 L (37-47) % Plt Count 160 (130-400) K/uL BMP 12/16/19 07:12 Sodium 140 Potassium 4.2 Chloride 106 Carbon Dioxide 26 BUN 17 Creatinine 0.87 Glucose 156 H Calcium 8.5 Medications Administered Current Inpatient Medications Acetaminophen (Acetaminophen 500 Mg Tab) 1,000 mg PO Q8H PRN PRN Reason: MILD Pain Scale 1,2,3 & Pre PT Stop: 01/14/20 11:45 Last Admin: 12/16/19 10:51 Dose: 1,000 mg Documented by: Al Hydrox/Mg Hydrox/Simethicone (Aluminum/Magnesium Susp 30 Ml Udc) 30 ml PO Q6H PRN PRN Reason: Dyspepsia Stop: 01/14/20 11:45 Bisacodyl (Bisacodyl 10 Mg Supp) 10 mg NV DAILY PRN PRN Reason: Constipation Stop: 01/16/20 09:49 Carvedilol (Carvedilol 25 Mg Tab) 25 mg PO BID AREN Stop: 01/14/20 20:59 Last Admin: 12/16/19 09:04 Dose: 25 mg Documented by: Dextrose (Dextrose 50% 50 Ml Syringe) 25 - 50 ml IV UD PRN; Protocol PRN Reason: Hypoglycemia Protocol Stop: 01/14/20 12:23 Diphenhydramine HCl (Diphenhydramine Hcl 25 Mg Cap) 25 mg PO Q6H PRN PRN Reason: Allergic Rhinitis/Insomnia Stop: 01/14/20 11:45 Docusate Sodium (Docusate Sodium 100 Mg Cap) 100 mg PO BID AREN Stop: 01/14/20 20:59 Last Admin: 12/16/19 09:04 Dose: 100 mg Documented by: Epinephrine (Racepinephrine 2.25% Nebu Soln 0.5 Ml Vial) 0.5 ml INH NOW PRN PRN Reason: if stridor present Stop: 01/14/20 11:45 Famotidine (Famotidine 20 Mg Tab) 20 mg PO Q12H PRN PRN Reason: Dyspepsia Stop: 01/14/20 11:45 Gabapentin (Gabapentin 300 Mg Cap) 300 mg PO TID AREN Stop: 01/14/20 13:59 Last Admin: 12/16/19 09:05 Dose: 300 mg Documented by: Glucagon (Glucagon For Inj 1 Mg Vial) 1 mg SQ UD PRN; Protocol PRN Reason: Hypoglycemia Protocol Stop: 01/14/20 12:23 Glucose (Glucose 10 Tabs/Tube) 4 - 8 tabs PO UD PRN; Protocol PRN Reason: Hypoglycemia Protocol Stop: 01/14/20 12:23 Glucose (Glucose 40% Gel 15 Gm Tube) 15 - 30 gm PO UD PRN; Protocol PRN Reason: Hypoglycemia Protocol Stop: 01/14/20 12:23 Hydromorphone HCl (Hydromorphone Inj 0.5 Mg/0.5 Ml Syr) 0.5 mg IV Q3H PRN PRN Reason: MOD pain (scale 4-6) & Pre PT Stop: 12/29/19 11:45 Hydromorphone HCl (Hydromorphone Inj 1 Mg/Ml Syringe) 1 mg IV Q3H PRN PRN Reason: severe pain (scale 7-10) Stop: 12/29/19 11:45 Hydroxyzine HCl (Hydroxyzine Hcl 25 Mg Tab) 25 mg PO Q8H PRN PRN Reason: Anxiety Stop: 01/14/20 11:45 Lorazepam (Ativan) 0.5 mg in 1 mls @ 1 mls/min IV Q8H PRN PRN Reason: Sedation/Anxiety Stop: 01/14/20 11:45 Dexamethasone Sodium Phosphate (8 mg/ Syringe) 2 mls @ 1 mls/min IV NOW PRN PRN Reason: stridor Stop: 01/14/20 11:45 Promethazine HCl 12.5 mg/ (Sodium Chloride) 50.5 mls @ 202 mls/hr IV Q6H PRN PRN Reason: Nausea &/or Vomiting Stop: 01/14/20 11:45 Influenza Virus Vaccine Quadrival (Do Not Administer Flu Vaccine) 1 ea N/A PRN PRN PRN Reason: Notification Stop: 01/14/20 11:45 Insulin Aspart (Insulin Aspart 100 Units/Ml 3 Ml Pen) 0 units SC [facility] Stop: 01/14/20 12:59 Last Admin: 12/16/19 09:03 Dose: 4 units Documented by: Lorazepam (Lorazepam 0.5 Mg Tab) 0.5 mg PO Q8H PRN PRN Reason: sedation/anxiety Stop: 01/14/20 11:45 Magnesium Hydroxide (Magnesium Hydroxide Susp 30 Ml Udc) 30 ml PO Q24H PRN PRN Reason: Constipation Stop: 01/14/20 11:45 Metoclopramide HCl (Metoclopramide Hcl Inj 5 Mg/Ml 2 Ml Vial) 10 mg IV Q6H PRN PRN Reason: Nausea &/or Vomiting Stop: 01/14/20 11:45 Miscellaneous (Solifenacin [Vesicare] 10 Mg -- Order Awaiting Action) 1 ea N/A [facility] Stop: 01/14/20 15:59 Last Admin: 12/16/19 02:37 Dose: Not Given Documented by: Miscellaneous (Carbohydrates For Hypoglycemia ) 15 - 30 gm PO UD PRN PRN Reason: Hypoglycemia Protocol Stop: 01/14/20 12:23 Naloxone HCl (Naloxone Hcl 0.4 Mg/1 Ml Vial/Carp) 0.1 mg IV Q5M PRN PRN Reason: Oversedation/respiratory dep Stop: 01/14/20 11:45 Ondansetron HCl (Ondansetron Inj 2 Mg/Ml 2 Ml Vial) 4 mg IV Q6H PRN PRN Reason: Nausea &/or Vomiting Stop: 01/14/20 11:45 Ondansetron HCl (Ondansetron 4 Mg Od Tab) 4 mg PO Q6H PRN PRN Reason: Nausea Stop: 01/14/20 11:45 Oxycodone HCl (Oxycodone Hcl Ir 5 Mg Tab (Immediate Release)) 5 - 10 mg PO Q4H PRN PRN Reason: Pain & Pre PT Stop: 12/29/19 11:45 Last Admin: 12/16/19 10:51 Dose: 10 mg Documented by: Pantoprazole Sodium (Pantoprazole 40 Mg Tab) 40 mg PO QAM [facility] Stop: 01/15/20 08:59 Last Admin: 12/16/19 09:05 Dose: 40 mg Documented by: Pneumococcal Polyvalent Vaccine (Do Not Administer Pneumococcal Vaccine) 1 ea N/A PRN PRN PRN Reason: Notification Stop: 01/14/20 11:45 Polyethylene Glycol (Polyethylene (Miralax) 17 Gm Pack) 17 gm PO Q6 [facility] Stop: 01/15/20 09:49 Rosuvastatin Calcium (Rosuvastatin Calcium 20 Mg Tab) 20 mg PO QAM [facility] Stop: 01/15/20 08:59 Last Admin: 12/16/19 09:05 Dose: 20 mg Documented by: Senna/Docusate Sodium (Docusate Sodium/Senna 50/8.6mg Tab) 2 tab PO HS AREN Stop: 01/14/20 20:59 Last Admin: 12/15/19 22:02 Dose: 2 tab Documented by: Sodium Biphosphate/Sodium Phosphate (Sod Phosphate/Sod Biphosphate Enema 132 Ml Btl) 132 ml NV ONE PRN PRN Reason: Constipation Stop: 01/14/20 11:45 Tramadol HCl (Tramadol Hcl 50 Mg Tablet) 50 - 100 mg PO Q4H PRN PRN Reason: Moderate-Severe pain & Pre PT Stop: 01/14/20 11:45 Venlafaxine HCl (Venlafaxine Hcl Xr 75 Mg Capxr) 75 mg PO QPM AREN Stop: 01/14/20 20:59 Last Admin: 12/15/19 22:00 Dose: 75 mg Documented by: Vitamin D (Cholecalciferol 1,000 Units 25 Mcg Tab) 2,000 units PO QPM AREN Stop: 01/14/20 20:59 Last Admin: 12/15/19 22:03 Dose: 2,000 units Documented by:
[2019-12-17] MEDS ORDERED: bisacodyL 10 MG SUPP PR PRN (09:50)
== END 2019-12-16 11:41 | disposition home or self-care (01) ==
LOC: ASU 06:17 → INTOOBSV 10:39 → 3E 10:39